=== PATIENT | male | born 1950 | race Caucasian/White ===

== ENCOUNTER 2020-03-02 20:53 | Emergency (ER) | payer MEDICARE ==
[~2020-03-02] VITALS: Ht 188 cm; Wt 127.0 kg
[2020-03-02] MEDS ORDERED: METFORMIN HCL500 MG PO (21:01)
[2020-03-02] MEDS ORDERED: SIMVASTATIN80 MG PO (21:01)
[2020-03-02] MEDS ORDERED: IBU800 MG PO (21:02)
[2020-03-02] MEDS ORDERED: NORCO 5-325 TA1 EAC2 PO (22:25)
[2020-03-02] MEDS ORDERED: CIPROFLOXIN HC2.5 M1 OPHTHALMIC (22:25)
[2020-03-02 22:34] VITALS: BP 147/78
== END 2020-03-02 22:34 | disposition home or self-care (01) ==
LOC: M.ERS 20:53
DX: S05.02XA Injury of conjunctiva and corneal abrasion without foreign body, left eye, initial encounter (principal); I10 Essential (primary) hypertension; E11.9 Type 2 diabetes mellitus without complications; E78.00 Pure hypercholesterolemia, unspecified; Z79.899 Other long term (current) drug therapy; W22.8XXA Striking against or struck by other objects, initial encounter; Y93.89 Activity, other specified; Y92.89 Other specified places as the place of occurrence of the external cause; Y99.8 Other external cause status